=== PATIENT | female | born 1995 ===

== ENCOUNTER 2025-04-02 07:11 | Observation (INO) | payer OTHER, SELFPAY ==
[2025-04-02 07:23] VITALS: BP 118/65; BMI 24.3
[2025-04-02] MEDS: LR 1000 IV ×2 (07:45→09:44)
[2025-04-02 07:57] LABS: Urine Character Slightly Cloudy (Clear)
[2025-04-02] MEDS: TYLENOL 1000 MG PO (07:58)
[2025-04-02] MEDS: ZOFRAN 4 MG IV (07:59)
[2025-04-02 08:03] LABS: Hematocrit 32.6 % (37.0-47.0); Hemoglobin 11.2 g/dL (12.0-16.0); Mean Corp Hgb Conc. 34.4 g/dL (33.0-37.0); Mean Corpuscular Volume 88.1 fL (81.0-99.0); Nucleated Red Blood Cells % 0 %; Platelet Count 191 10^3/uL (130-400); Red Cell Dist. Width 12.2 % (11.5-14.5)
[2025-04-02 08:13] LABS: Blood Urea Nitrogen 8 mg/dl (7-17); Calcium 8.6 mg/dl (8.4-10.2); Carbon Dioxide 23 mmol/L (22-30); Chloride 105 mmol/L (98-107); Estimated Creatinine Clearance 119 ml/min; Glucose 92 mg/dl (70-99); Potassium 3.7 mmol/L (3.5-5.1); Sodium 132 mmol/L (135-145); eGFR > 60.00
[2025-04-02 09:25] LABS: Urine Red Blood Cell 30-40 /HPF (0-2); Urine Squamous Cell >30 /LPF (Few)
[2025-04-02] MEDS: ANCEF 5 IV (09:42)
== END 2025-04-02 10:57 | disposition home or self-care (01) ==
LOC: LDRP 07:11
PROVIDERS: Student in an Organized Health Care Education/Training Program; ADMITTING PHYSICIAN Obstetrics & Gynecology
DX: O26.893 Other specified pregnancy related conditions, third trimester (principal); M54.50 Low back pain, unspecified; R11.0 Nausea; Z3A.28 28 weeks gestation of pregnancy
CPT/HCPCS: 59025; 80048; 81003; 81015; 85025; 86850; 86900; 86901; 87086; G0378